=== PATIENT | male | born 1960 | race Caucasian/White ===

== ENCOUNTER → 2023-07-06 08:07 | Outpatient (REF) | payer OTHER, SELFPAY | LOC: DHCBS HW 08:07 | PROVIDERS: ATTENDING PHYSICIAN Internal Medicine Cardiovascular Disease; FAMILY PHYSICIAN Emergency Medicine | DX: I47.20 Ventricular tachycardia, unspecified (principal) | CPT/HCPCS: 93306 ==

== ENCOUNTER → 2023-07-30 08:38 | Outpatient (REF) | payer OTHER, SELFPAY | LOC: DHCBC/DCA 08:38 | PROVIDERS: ATTENDING PHYSICIAN Internal Medicine Cardiovascular Disease; FAMILY PHYSICIAN Emergency Medicine | DX: I47.20 Ventricular tachycardia, unspecified (principal) | CPT/HCPCS: 78452; 93017; A9500 ==

== ENCOUNTER 2023-08-05 07:50 | Day surgery (SDC) | payer OTHER, SELFPAY ==
[2023-08-05] VITALS (20 sets, daily range): BP systolic 91–167; BP diastolic 59–85; BMI 25.7
[2023-08-05 08:19] LABS: Hematocrit 42.1 % (39.0-52.0); Hemoglobin 14.9 g/dL (13.0-18.0); Mean Corp Hgb Conc. 35.4 g/dL (33.0-37.0); Mean Corpuscular Volume 93.3 fL (80.0-94.0); Mean Platelet Volume 9.4 fL (7.4-10.4); Platelet Count 166 10^3/uL (130-400); Red Blood Cell Count 4.51 10^6/uL (4.70-6.10); Red Cell Dist. Width 12.2 % (11.5-14.5); White Blood Cell Count 7.4 10^3/uL (4.8-10.8)
[2023-08-05] MEDS: LOW STRENGTH ASPIRIN 81 MG PO (08:20)
[2023-08-05] MEDS: NSS 265 ML IV (08:38)
--- NOTE | 2023-08-05 09:02 | ITS.CL.CATH ---
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
Cardiac Catheterization
Procedure Report:
LEFT HEART CATHETERIZATION
Date of Procedure: August 05, 2023
Referring: Mario Alberto Dejesus
PROCEDURES:
1. Left catheterization, coronary angiogram.
2. Ultrasound-guided access
INDICATION: Mr. Winslow is a 62-year-old gentleman with past medical history of coronary artery disease status post robotic one-vessel CERNA to LAD along with RCA and OM 1 PCI in 2019 at [facility], hypertension, hyperlipidemia, Psoriatic
arthritis on chronic methotrexate therapy complete blindness of left eye who was recently found to have a mild reduction in LV function with echo showing LVEF of 43% (global hypokinesis which is more prominent in mid to basal inferior gandara) with
subsequent conveyor monitor and stress test showing more frequent ventricular ectopy and nonsustained VT and perfusion defects in the anterolateral and inferolateral regions which are predominantly fixed the patient is now being referred for a left
heart catheterization to rule out any obstructive CAD/ischemia.
ACCESS: Left radial artery, 6 Slovak sheath, under ultrasound guidance
HEMODYNAMICS : (mmHg)
AO (s/d) : 159/87
LV (s/d) : 156/9
LVEDP : 18
CORONARY FINDINGS
DOMINANCE: Right
LEFT MAIN: There is a very short versus cloacal left main with minimal luminal irregularities.
LEFT ANTERIOR DESCENDING: The left anterior descending artery is a large-caliber vessel which gives rise to multiple small to medium caliber diagonal branches. There is mild to moderate diffuse atherosclerotic plaque up to 50% in the proximal to
mid LAD. Mid to distal LAD has competitive flow from a widely patent CERNA graft.
CIRCUMFLEX: The left circumflex artery was extremely challenging to engage selectively despite use of multiple different diagnostic catheters including a JL 4, AL-1 and AL 2 diagnostic catheters. In sub-selective shots, OM 1 stent appears widely
patent with TOO-3 flow. There is a bend in the mid left circumflex just distal to the OM1 takeoff for eccentric disease cannot be definitively ruled out however it appears similar to heart catheterization from 2019. Given the wall motion
abnormalities noted on echocardiogram and stress test would not be fully explained by this disease being obstructive anyway it was not felt that further interrogation with functional testing or otherwise would justify the potential risk therefore
decision was made to pursue medical therapy only. Distal vessels have TOO-3 flow. Distal left circumflex at the level of the left posterolateral branches has stable 40 to 50% stenosis.
RIGHT CORONARY ARTERY: The right coronary artery is a large-caliber, dominant vessel which describes to the right posterior descending artery. Prior RCA stents are widely patent.
GRAFT ANGIOGRAPHY:
1. CERNA to LAD graft is widely patent.
SEDATION: 61 minutes of procedural sedation was utilized. An independent biomedical specialist was present to assist with and help manage the patient's level of consciousness and physiologic status.
RADIATION SUMMARY: Fluoro Time (min): 13.2, Dose (mGy): 565.6, DAP (Gy.cm2) : 42.7
Closure Device: Vascular band over left radial artery, 15 cc of air
CONCLUSIONS
1. CERNA to LAD graft is widely patent.
2. OM1 and RCA stents are widely patent.
3. Stable coronary artery disease otherwise.
4. Elevated LVEDP.
RECOMMENDATIONS
1. Wean radial band per protocol.
2. Goal-directed medical therapy for new cardiomyopathy.
3. Discussion with electrophysiology regarding frequent ventricular ectopy.
4. Referral for outpatient cardiac rehab.
5. Reviewed cath imaging and discussed findings with outpatient management accountant, Dr. Mario Alberto Dejesus.
Copy to: Mario Alberto Dejesus
Dia Stinson MD, [facility]< [facility]
--- NOTE | 2023-08-05 11:59 | W.PN.UPDATE ---
Update Note
Progress Note Update
I had a discussion with Mr. Winslow and his at bedside after the left heart catheterization today. This demonstrated patent anatomy from his prior hybrid coronary artery bypass surgery with CERNA to LAD and circumflex stent. He has an ejection
fraction which is diminished at 38 to 43% June 2023 echo and has been initiated on guideline based medical therapy. At stress testing recently which demonstrated fixed inferolateral and apical segments he was noted to have frequent ectopy couplets
and triplets with exercise which were multifocal in nature. I was asked by his outpatient physicist cryogenics to discuss options for risk stratification which would include electrophysiology study to determine whether he has inducible tachyarrhythmia
given his prior myocardial scar, intermediate ejection fraction, and ventricular ectopy. I described in detail EP study and if he is inducible for sustained ventricular tachyarrhythmia that we would offer him an implantable defibrillator. We also
discussed that if he had a frequent monomorphic PVC or focus of tachycardia that could be addressed with ablation although his prior monitoring has demonstrated multifocal PVCs and I suspect given his prior PVC burden that he would not significantly
benefit from elimination of his predominant PVCs. I will review his recent monitoring prior to our next discussion. Nonetheless we discussed risks of EP study and risk of defibrillator implant and I offered him procedure or to visit again with me
in the office or his outpatient physicist cryogenics in the office to discuss further. He will let us know what he would like to do and proceed.
--- NOTE | 2023-08-05 15:50 | CM ---
Asked to check co-pay on Farxiga 10 mg po daily and Jardiance 10 mg po daily. Telephone call to [facility],([phone]) to check on co-pay. His co-pay for Farxiga is zero and Jardiance co-pay is zero. He has met his out of pocket deductible.
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
== END 2023-08-05 15:11 | disposition home or self-care (01) ==
LOC: CATH 07:50
PROVIDERS: ATTENDING PHYSICIAN Internal Medicine Interventional Cardiology; FAMILY PHYSICIAN Physician Assistant Medical
DX: I25.10 Atherosclerotic heart disease of native coronary artery without angina pectoris (principal); H54.62 Unqualified visual loss, left eye, normal vision right eye; L40.50 Arthropathic psoriasis, unspecified; E78.5 Hyperlipidemia, unspecified; I10 Essential (primary) hypertension; Z95.5 Presence of coronary angioplasty implant and graft; I42.9 Cardiomyopathy, unspecified
CPT/HCPCS: 99152; 99153; 76937; 85027; 93459; C1894; Q9967

== ENCOUNTER 2023-10-27 08:34 | Day surgery (SDC) | payer OTHER, SELFPAY ==
[2023-10-21 08:49] VITALS: BMI 25.7
[2023-10-21 09:21] LABS: % Basophils 0.5 % (0-2); % Eosinophils 2.2 % (0-6); % Immature Granulocytes 0.3 % (0-0.5); % Lymphocytes 21.6 % (20.5-51.1); % Monocytes 10.6 % (1.7-9.3); % Neutrophils 64.8 % (42.2-75.2); Absolute Eosinophils 0.1 10^3/uL (0-0.7); Absolute Lymphocytes 1.4 10^3/uL (1.2-3.4); Absolute Monocytes 0.7 10^3/uL (0.1-0.6); Absolute Neutrophils 4.2 10^3/uL (1.4-6.5); Hematocrit 43.1 % (39.0-52.0); Hemoglobin 15.1 g/dL (13.0-18.0); Mean Corpuscular Hgb 34.6 pg (27.0-31.0); Mean Corpuscular Volume 98.6 fL (80.0-94.0); Mean Platelet Volume 9.6 fL (7.4-10.4); Nucleated Red Blood Cells % 0 % (-); Platelet Count 166 10^3/uL (130-400); Red Blood Cell Count 4.37 10^6/uL (4.70-6.10); Red Cell Dist. Width 12.6 % (11.5-14.5); White Blood Cell Count 6.4 10^3/uL (4.8-10.8)
[2023-10-21 09:31] LABS: INR 1.07; PT 13.9 Sec (11.4-14.6)
[2023-10-21 09:36] LABS: ALT (SGPT) 36 U/L (0-50); AST (SGOT) 41 U/L (17-59); Albumin 4.5 g/dl (3.5-5.0); Alkaline Phosphatase 84 U/L (38-126); Blood Urea Nitrogen 18 mg/dl (9-20); Calcium 9.4 mg/dl (8.4-10.2); Carbon Dioxide 31 mmol/L (22-30); Chloride 104 mmol/L (98-107); Estimated Creatinine Clearance > 125 ml/min; Glucose 102 mg/dl (70-99); Magnesium 2.2 mg/dl (1.6-2.3); Sodium 141 mmol/L (135-145); Total Bilirubin 1.2 mg/dl (0.2-1.3); eGFR > 60.00
[2023-10-27] VITALS (10 sets, daily range): BP systolic 110–170; BP diastolic 58–82; BMI 25.6
--- NOTE | 2023-10-27 11:53 | ITS.CL.ABL ---
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
Ablation
Procedure Report:
ELECTROPHYSIOLOGY ABLATION REPORT
�
Date of Procedure: October 27, 2023
Referring: Dr. Mario Alberto Dejesus
�
INDICATION: Sudden cardiac risk assessment given recent ultrasound demonstrating ejection fraction of 43% with a 12% PVC burden. This may be overestimated due to frequent PACs noted on monitor.
�
HISTORY: As above
�
PROCEDURE:
Baseline intracardiac measurements were obtained in sinus rhythm.� HRA, HIS, RVA recording and pacing was performed. 2 quadripolar catheters were placed to the high right atrium, hiss position, right ventricular septum and right ventricular apex.
2 6 Welsh femoral venous sheaths were placed under direct ultrasound guidance and removed with manual pressure.
Atrial decremental extrastimuli were delivered from the HRA.� Single and double extrastimuli as well as burst pacing were performed from both sites in both the baseline state and with isoproterenol infusion.� Atrial and AVN antegrade ERP's were
determined.� Antegrade as well as retrograde AVN Wenckenach CL's were determined. There is no evidence of significant conduction disease in the sinus node or AV node and retrograde conduction was midline and decremental.
�
MEASUREMENTS:
BASELINE
A-A:�1100 ms
P-P:�1100 ms
A-H:�86 ms
H-V��� 48 ms
P-R:�� 142 ms
QRS:�80 ms
QT:���380
SNRT: Normal at 600 ms
AVN Wenckebach: 430 ms with block in the AH interval
AVN Fast Pathway ERP: 600�4 10 ms
AVN Slow Pathway ERP: No evidence for slow pathway conduction
HIS-Purkinje System: Normal; no distal block
Retrograde Conduction Decremental, Retrograde Block for 40 ms
RVA ERP: 270 ms/600ms�250 ms/400ms
RVOT ERP: 260 ms/600ms��� 240 ms/400ms
�
As above EP study was performed with pacing from 2 ventricular sites in the Para-Hisian region and the RV apex. 400 ms and 600 ms drivetrain's from the RV apex. Single double and triple extrastimuli were given from both sites and the patient was
noninducible for any sustained ventricular tachyarrhythmias. Of note the patient had sparse PVCs of 4 separate morphologies to right bundle and 2 left bundle. The right bundle morphology suggested both papillary muscles with 1 probable
anterolateral papillary muscle site of origin with right bundle right inferior with notched QRS throughout the precordium and another right bundle left superior suggesting posteromedial papillary muscle site of origin. The left bundle morphologies
were both superiorly directed with a QS in lead II and III with left axis suggesting possible epicardial morphology from the crux. Given the sparse multifocal PVCs we elected not to perform PVC ablation during the EP study.
�
COMPLICATIONS: None
�
SUMMARY: Noninducible for sustained ventricular tachycardia or ventricular fibrillation deeming the patient low risk for sudden cardiac
�
RECOMMENDATIONS:�
1. Continue metoprolol, losartan and Farxiga
2. Repeat cardiac ultrasound in 1 to 2 months and could consider cardiac MRI for further diagnostic assessment of his cardiomyopathy
Cc: Dr. Mario Alberto Dejesus
�
== END 2023-10-27 17:15 | disposition home or self-care (01) ==
LOC: CATH 08:34
PROVIDERS: ATTENDING PHYSICIAN Internal Medicine Cardiovascular Disease; FAMILY PHYSICIAN Physician Assistant Medical; OTHER PHYSICIAN Internal Medicine Cardiovascular Disease
DX: I47.20 Ventricular tachycardia, unspecified (principal); I25.5 Ischemic cardiomyopathy; I25.10 Atherosclerotic heart disease of native coronary artery without angina pectoris; I10 Essential (primary) hypertension; E78.2 Mixed hyperlipidemia; R06.09 Other forms of dyspnea; Z95.1 Presence of aortocoronary bypass graft; Z79.82 Long term (current) use of aspirin; Z79.84 Long term (current) use of oral hypoglycemic drugs
CPT/HCPCS: 93620; C1730; C1894; 36415; 76937; 80053; 83735; 85025; 85610; 86850; 86900; 86901; 93005

== ENCOUNTER → 2024-06-29 08:17 | Outpatient (REF) | payer OTHER, SELFPAY | LOC: HWRCS 08:17 | PROVIDERS: ATTENDING PHYSICIAN Internal Medicine Cardiovascular Disease; FAMILY PHYSICIAN Physician Assistant Medical | DX: I25.5 Ischemic cardiomyopathy (principal) | CPT/HCPCS: 93306 ==